=== PATIENT | female | born 1945 | race African-American/Black ===

== ENCOUNTER 2017-01-12 00:37 | Emergency (ER) | payer OTHER ==
[2017-01-12] MEDS ORDERED: NS 0.9% 1000 ML* 1,000 ML IV ONE (01:18)
[2017-01-12 02:13] LABS: Hematocrit 43 % (35-47); Hemoglobin 14.3 g/dl (12.0-16.0); Mean Corpuscular HGB Conc 33 g/dl (31-36); Mean Corpuscular Hemoglobin 27 pg (27-31); Mean Corpuscular Volume 82 fL (80-97); Mean Platelet Volume 10 um3 (7.4-10.4); Red Blood Count 5.23 10^6/ul (4.0-5.4); Red Cell Distribution Width 15 % (10.5-15); White Blood Count 6.6 10^3/ul (3.5-10.8)
[2017-01-12 02:19] LABS: Urine Bacteria 1+ (Absent); Urine Bilirubin Negative (Negative); Urine Glucose Negative (Negative); Urine Nitrite Negative (Negative)
[2017-01-12 02:23] LABS: ALT 9 U/L (7-52); AST 19 U/L (13-39); Albumin 4.3 g/dL (3.2-5.2); Alkaline Phosphatase 78 U/L (34-104); Anion Gap 5 mmol/L (2-11); BUN/Creatinine Ratio 14.9 (8-20); Blood Urea Nitrogen 14 mg/dL (6-24); C Reactive Protein < 1.00 mg/L (< 5.00); CO2 Carbon Dioxide 28 mmol/L (22-32); Calcium 9.5 mg/dL (8.6-10.3); Chloride 103 mmol/L (101-111); EGFR African American 75.5 (>60); EGFR Non-African American 58.7 (>60); Globulin 2.8 g/dL (2-4); Glucose 113 mg/dL (70-100); Lipase 46 U/L (11.0-82.0); Potassium 3.9 mmol/L (3.5-5.0); Sodium 136 mmol/L (133-145); Total Protein 7.1 g/dL (6.4-8.9)
[2017-01-12] MEDS ORDERED: Iohexol 300* (CONTRAST) 10 ML SDV IV ONE (02:31)
[2017-01-12] MEDS ORDERED: Levofloxacin TAB* 250 MG PO ONE (03:28)
--- NOTE | 2017-01-12 03:28 | ED ---
Arturo Mora Rebecca, scribed for Tyler Gambino MD on 01/12/17 at 0127 . Abdominal Pain/Female - HPI Summary HPI Summary: Pt is a 71 y/o F who presents to ED c/o epigsatric abdominal pain. Pain has been intermittent for the past year and is currently moderate, ranked 5/10. 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 Pt reports that pain tonight is different because "you can feel something in there." Sx aggravated and alleviated by nothing. Additionally c/o nausea. Denies fever, vomiting. Last saw her PCP for these sx about 1 month ago. - History of Current Complaint Chief Complaint: EDAbdPain Stated Complaint: ABD PAIN Time Seen by Provider: 01/12/17 01:11 Hx Obtained From: Patient Onset/Duration: Still Present Timing: Intermittent Episode Lasting Severity Currently: Moderate Pain Intensity: 5 Pain Scale Used: 0-10 Numeric Location: Epigastric Aggravating Factor(s): Nothing Alleviating Factor(s): Nothing Associated Signs and Symptoms: Positive: Nausea. Negative: Fever, Vomiting Allergies/Adverse Reactions: Allergies Allergy/AdvReac Type Severity Reaction Status Date / Time No Known Allergies Allergy Verified 01/12/17 00:43 PMH/Surg Hx/FS Hx/Imm Hx Endocrine/Hematology History: Denies: Hx Diabetes, Hx Thyroid Disease Cardiovascular History: Denies: Hx Hypertension Respiratory History: Denies: Hx Asthma, Hx Chronic Obstructive Pulmonary Disease (COPD) GI History: Reports: Hx Gastroesophageal Reflux Disease - PRN OTC- UNKNOWN, Hx Ulcer - gerd Musculoskeletal History: Reports: Hx Arthritis Sensory History: Reports: Hx Cataracts, Hx Contacts or Glasses - GLASSES Denies: Hx Hearing Aid Opthamlomology History: Reports: Hx Cataracts, Hx Contacts or Glasses - GLASSES Neurological History: Reports: Other Neuro Impairments/Disorders - ALZHEIMER'S Psychiatric History: Reports: Hx Anxiety - AT TIMES - Surgical History Surgery Procedure, Year, and Place: hysterectomy- [facility]. polyps removed during [facility]. LEFT EYE CATARACT REMOVED- [facility]. CARPAL TUNNEL RIGHT Hx Anesthesia Reactions: No - Immunization History Date of Tetanus Vaccine: Unk Date of Influenza Vaccine: Fall 2014 Infectious Disease History: Denies: Hx Clostridium Difficile, Hx Hepatitis, Hx Human Immunodeficiency Virus (HIV), Hx of Known/Suspected MRSA, Hx Shingles, Hx Tuberculosis, Traveled Outside the [place] in Last 30 Days - Family History Known Family History: Positive: Other - Cataract - Social History Alcohol Use: Occasionally Hx Substance Use: No Substance Use Type: Reports: None Hx Tobacco Use: No Smoking Status (MU): Never Smoked Tobacco Review of Systems Negative: Fever Positive: Abdominal Pain, Nausea. Negative: Vomiting All Other Systems Reviewed And Are Negative: Yes Physical Exam Triage Information Reviewed: Yes Vital Signs On Initial Exam: Initial Vitals Temp Pulse Resp BP Pulse Ox 96.8 F 68 16 147/81 100 01/12/17 00:40 01/12/17 00:40 01/12/17 00:40 01/12/17 00:40 01/12/17 00:40 Vital Signs Reviewed: Yes Appearance: Positive: No Pain Distress, Thin Skin: Positive: Warm Head/Face: Positive: Normal Head/Face Inspection ENT: Positive: Hearing grossly normal Neck: Positive: Supple Respiratory/Lung Sounds: Positive: Clear to Auscultation, Breath Sounds Present Cardiovascular: Positive: RRR Abdomen Description: Positive: Nontender, Soft Bowel Sounds: Positive: Present Neurological: Positive: Alert, Oriented to Person Place, Time Psychiatric: Positive: Affect/Mood Appropriate Diagnostics - Vital Signs Vital Signs Temp Pulse Resp BP Pulse Ox 01/12/17 00:40 96.8 F 68 16 147/81 100 - Laboratory Result Diagrams: 01/12/17 01:50 01/12/17 01:50 Lab Statement: Any lab studies that have been ordered have been reviewed, and results considered in the medical decision making process. - CT CT Abd/Pel CT Interpretation: No Acute Changes - No solid stool could indicate a diarrheal illness. Quesitonable mild gastritis. CT Interpretation Completed By: Radiologist - EKG 0357 Cardiac Rate: NL - 49 bpm EKG Rhythm: Sinus Bradycardia EKG Interpretation: No acute changes Re-Evaluation - Re-Evaluation First Eval Re-Evaluation Time: 04:01 Change: Improved Comment: Discussed CT results. Abdominal Pain Fem Course/Dx - Course Course Of Treatment: Pt is a 71 y/o F who presents to ED c/o epigsatric abdominal pain. Pain has been intermittent for the past year and is currently moderate, ranked 5/10. 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 Pt reports that pain tonight is different because "you can feel something in there. " Sx aggravated and alleviated by nothing. Additionally c/o nausea. Denies fever , vomiting. Last saw her PCP for these sx about [address] Abd/Pel reveals no acute findings. UA reveals urine color: yellow, appearance: clear, blood: 3+ , leukocyte esterase: 2+, WBC: 2+, RBC: trace, quamous epithelial cells present , bacteria: 1+ and negative for ptoein and ketones. Pt will be D/C to home with Dx of UTI and abdominal pain adn Rx for Levaquin. She understands and agrees. Elevated BP noted and advised to f/u with PCP. - Diagnoses Provider Diagnoses: Abdominal pain, UTI (urinary tract infection) Discharge - Discharge Plan Condition: Stable Disposition: HOME Prescriptions: Levofloxacin TAB* [Levaquin TAB*] 250 mg PO DAILY #7 tab Patient Education Materials: Acute Abdominal Pain (ED), Urinary Tract Infection in Women (ED) Referrals: Wale Claros MD [Primary Care Provider] - Jr Mckeon MD [Medical Doctor] - 3 Days The documentation as recorded by the rAturo doan Rebecca accurately reflects the service I personally performed and the decisions made by me, Tyler Gambino MD.
[2017-01-12 05:12] VITALS: BP 125/53
--- NOTE | 2017-01-12 08:15 | RAD ---
INDICATION: Abdominal pain. COMPARISON: Comparison is made with prior x-ray study of the lumbar spine from November 10, 2014. TECHNIQUE: A CT scan of the abdomen and pelvis was performed with intravenous and oral contrast following intravenous injection of 72 ml of Omnipaque 300 nonionic contrast. Contiguous axial sections were obtained from the lung bases through the symphysis pubis. Images were reconstructed in the coronal and sagittal planes. FINDINGS: The lung bases are clear. No pleural effusion is present. The liver and spleen are within normal limits in size without significant focal abnormality. No calcified gallstones are seen. No focal pancreatic abnormality is seen. The kidneys and adrenal glands are normal in size. No hydronephrosis is seen. There are several small bilateral renal cysts. The aorta is normal in caliber with mild calcific plaque present. No significant enlarged retroperitoneal lymph nodes are seen. The stomach, small and large bowel appear nondistended. There is mild thickening of the wall of the stomach possibly due to a complete distention versus gastritis. The appendix appears to be within normal limits. There is no evidence for diverticulitis or colitis. The patient is status post hysterectomy. No free intraperitoneal air or fluid is seen. There is a chronic compression fracture of the superior endplate of the L3 vertebral body which is unchanged from the prior x-ray study. No other focal osseous abnormalities are seen. IMPRESSION: 1. THICKENING OF THE WALL OF THE STOMACH MOST CONSISTENT WITH EITHER INCOMPLETE DISTENTION OR GASTRITIS. RECOMMEND CLINICAL CORRELATION. 2. CHRONIC COMPRESSION FRACTURE OF THE L3 VERTEBRAL BODY, UNCHANGED.
== END 2017-01-12 05:11 | disposition home or self-care (01) ==
LOC: ED 00:37
DX: R10.13 Epigastric pain (principal); N39.0 Urinary tract infection, site not specified; R11.0 Nausea
CPT/HCPCS: 36415; 74177; 80053; 81003; 81015; 83605; 83690; 85025; 86140; 87086; 93005; 99282; A9270-GY; Q9967

== ENCOUNTER 2019-07-19 13:42 | Emergency (ER) | payer MEDICARE, OTHER ==
[2019-07-19 15:23] LABS: ABS Lymphocytes 1.4 10^3/ul (1.0-4.8); ABS Monocytes 0.3 10^3/ul (0-0.8); ABS Neutrophils 3.3 10^3/ul (1.5-7.7); Eosinophil % 0.4 %; Hematocrit 38 % (35-47); Hemoglobin 12.8 g/dL (12.0-16.0); Mean Corpuscular HGB Conc 34 g/dL (31-36); Mean Corpuscular Hemoglobin 28 pg (27-31); Mean Corpuscular Volume 82 fL (80-97); Mean Platelet Volume 8.9 fL (7.4-10.4); Nucleated Red Blood Cells % 0.1; Platelet Count 156 10^3/uL (150-450); Red Blood Count 4.65 10^6 /uL (3.70-4.87); Red Cell Distribution Width 14 % (10-15)
--- NOTE | 2019-07-19 15:24 | ED ---
Syncope/Near Syncope - HPI Summary HPI Summary: 74 year old female presents with syncope today. She was walking with her caregiver and she passing out for a minute. Home health aide said she did not hit her head and ended up put her in a chair and she came around. She was leaning on the aide when she came around. She never voiced any pain or dizziness. She did pass out 2 years ago. She has no cardiac history. no family history of cardiac disease. she denies any chest pain or SOB. no dizziness. no visual changes. daughter states she is acting normal. level 5 cavet due to patient Alzheimer. history provided by daughter. - History Of Current Complaint Chief Complaint: EDSyncope Time Seen by Provider: 07/19/19 14:42 - Allergies/Home Medications Allergies/Adverse Reactions: Allergies Allergy/AdvReac Type Severity Reaction Status Date / Time No Known Allergies Allergy Verified 07/19/19 13:48 Home Medications: Home Medications Donepezil TAB* [Aricept TAB*] 10 mg PO DAILY 02/21/15 [History Confirmed ] Alendronate (NF) [Fosamax (NF)] 70 mg PO WEEKLY 07/19/19 [History Confirmed 01/29] Memantine TAB* [Namenda TAB*] 10 mg PO DAILY 07/19/19 [History Confirmed ] PMH/Surg Hx/FS Hx/Imm Hx Endocrine/Hematology History: Denies: Hx Anticoagulant Therapy, Hx Diabetes, Hx Thyroid Disease Cardiovascular History: Denies: Hx Hypertension Respiratory History: Denies: Hx Asthma, Hx Chronic Obstructive Pulmonary Disease (COPD) GI History: Reports: Hx Gastroesophageal Reflux Disease - PRN OTC- UNKNOWN, Hx Ulcer - gerd Musculoskeletal History: Reports: Hx Arthritis Sensory History: Reports: Hx Cataracts, Hx Contacts or Glasses - GLASSES Denies: Hx Hearing Aid Opthamlomology History: Reports: Hx Cataracts, Hx Contacts or Glasses - GLASSES Neurological History: Reports: Other Neuro Impairments/Disorders - ALZHEIMER'S Psychiatric History: Reports: Hx Anxiety - AT TIMES - Surgical History Surgery Procedure, Year, and Place: hysterectomy- [facility]. polyps removed during [facility]. LEFT EYE CATARACT REMOVED- [place]. CARPAL TUNNEL RIGHT Hx Anesthesia Reactions: No - Immunization History Date of Tetanus Vaccine: Unk Date of Influenza Vaccine: Fall 2014 Infectious Disease History: No Infectious Disease History: Denies: Hx Clostridium Difficile, Hx Hepatitis, Hx Human Immunodeficiency Virus (HIV), Hx of Known/Suspected MRSA, Hx Shingles, Hx Tuberculosis, Traveled Outside the [place] in Last 30 Days - Family History Known Family History: Positive: None, Other - Cataract - Social History Alcohol Use: None Hx Substance Use: No Substance Use Type: Reports: None Hx Tobacco Use: No Smoking Status (MU): Never Smoked Tobacco Review of Systems Negative: Fever Negative: Chest Pain Negative: Shortness Of Breath Positive: Syncope All Other Systems Reviewed And Are Negative: Yes Physical Exam Triage Information Reviewed: Yes Vital Signs On Initial Exam: Initial Vitals Temp Pulse Resp BP Pulse Ox 98.5 F 61 16 142/61 100 07/19/19 13:47 07/19/19 13:47 07/19/19 13:47 07/19/19 13:47 07/19/19 13:47 Vital Signs Reviewed: Yes Appearance: Positive: Well-Appearing Skin: Positive: Warm, Dry Head/Face: Positive: Normal Head/Face Inspection Eyes: Positive: Normal, EOMI, JO, Conjunctiva Clear ENT: Positive: Normal ENT inspection, Pharynx normal, TMs normal Respiratory/Lung Sounds: Positive: Clear to Auscultation, Breath Sounds Present Cardiovascular: Positive: Normal, RRR Abdomen Description: Positive: Nontender, Soft Bowel Sounds: Positive: Present Musculoskeletal: Positive: Normal Neurological: Positive: Sensory/Motor Intact, CN Intact II-III. Negative: Alert , Oriented to Person Place, Time Psychiatric: Positive: Normal Procedures - Sedation Patient Received Moderate/Deep Sedation with Procedure: No Diagnostics - Vital Signs Vital Signs Temp Pulse Resp BP Pulse Ox 07/19/19 15:00 53 19 100 07/19/19 14:33 64 17 112/55 100 07/19/19 14:28 57 100 07/19/19 13:47 98.5 F 61 16 142/61 100 - Laboratory Result Diagrams: 07/19/19 15:12 07/19/19 15:12 Lab Statement: Any lab studies that have been ordered have been reviewed, and results considered in the medical decision making process. - CT brain CT Interpretation Completed By: Radiologist Summary of CT Findings: IMPRESSION: NO ACUTE INTRACRANIAL PATHOLOGY. - EKG No standard instances Cardiac Rate: Bradycardia EKG Rhythm: Sinus Bradycardia EKG Comparison: No Significant Change Summary of EKG Findings: sinus rhythm Re-Evaluation - Re-Evaluation First Eval Re-Evaluation Time: 18:43 Comment: discussed admission and daughter declined. Course/Dx Course Of Treatment: 74 year old female presents with syncope today. She was walking when she ended up passing out. Home health aide put her in a chair and she came around. She was leaning on the aide when she came around. She never voiced and pain or dizziness. She did pass out 2 years ago. She has no cardiac history. no family history of cardiac disease. she denies any chest pain or SOB. no dizziness. no visual changes. daughter states she is acting normal. level 5 cavet due to patient Alzheimer. history provided by daughter. on exam has is alert to person only. no neuro deficit. sinus rhythm noted in room. ekg shows sinus bradycardia. discussed case with dr gonzalez who recommends discussing with hospitalist. discussed with dr mittal who recommends orthostatic which were positive after a liter. will give another liter of fluid. discussed admission with daughter who declines at this time as patient is becoming more agitated when here. She wants to have her follow up outpatient. warned if anything changes to return. patient daughter understand and agrees with plan. - Diagnoses Differential Diagnosis/HQI/PQRI: Positive: Dysrhythmia, Hypoglycemia, Hypovolemia, Vasovagal Episode Provider Diagnoses: Syncope, Orthostatic hypotension Discharge ED - Sign-Out/Discharge Documenting (check all that apply): Patient Departure - Discharge Plan Condition: Stable Disposition: HOME Patient Education Materials: Syncope (ED) Referrals: Wale Claros MD [Primary Care Provider] - Additional Instructions: encourage fluids follow up with primary within 3 days Return to ED if develop any new or worsening symptoms - Billing Disposition and Condition Condition: STABLE Disposition: Home
[2019-07-19 15:42] LABS: Troponin I 0.02 ng/mL (<0.03)
--- OUTSIDE RECORDS SUMMARY | 2019-07-19 15:43 | XMS REPORT | Summary of Care ---
:1945 Author Organization [facility] Address [address] [place] [address] Care Team Providers Name Role Phone HyacinthWale Jonathon Primary Care Provider Reason for Referral Refer to Department Only (Routine) Status Reason Specialty Diagnoses / Referred By Referred To Procedures Contact Contact Pending Review NEUROLOGY Diagnoses Late onset Alzheimer's disease with behavioral disturbance (HCC) Edvin Zimmerman, PA [address] [place] [address] Reason for Visit Reason Comments Check Up halluciantions brought on by alzhiemers, complains of a pain under her rib cage, not sleeping well, appetite has decreased, ongoing for a few weeks. Encounter Details Date Type Department Care Team Description 05/31/2019 Office Visit [place] [facility] Edvin Zimmerman, Late onset Alzheimer's Medicine PA disease with [address] [facility] behavioral disturbance [place], [place] [id number] [place] [address] (HCC) (Primary Dx) [phone] Allergies No Known Allergiesdocumented as of this encounter (statuses as of 05/31/2019) Medications Medication Sig Dispensed Refills Start Date End Date Status calcium-vitamin D Take 1 Tab 90 Tab 0 11/05/2017 Active (OSCAL 500/200 D-3) by mouth 500-200 MG-UNIT Oral TWICE DAILY. TabIndications: Osteoporosis with current pathological fracture, unspecified osteoporosis type, initial encounter pantoprazole Take 1 Tab 30 Tab 5 11/16/2018 Active (PROTONIX) 40 MG Oral by mouth Tab ECIndications: DAILY. Gastroesophageal reflux disease without esophagitis alendronate (FOSAMAX) TAKE 1 12 Tab 3 12/15/2018 Active 70 MG Oral Tab TABLET BY MOUTH EVERY 7 DAYS memantine (NAMENDA) Take 1 Tab 180 Tab 3 12/15/2018 Active 10 MG Oral by mouth TabIndications: DAILY. Dementia with psychosis (HCC) haloperidol (HALDOL) Take 1 Tab 60 Tab 0 05/31/2019 Active 0.5 MG Oral Tab by mouth EVERY SIX HOURS NEEDED (For hallucinatio ns). donepezil (ARICEPT) TAKE 1 90 Tab 3 04/23/2018 05/31/19 Discontinued 10 MG Oral Tab TABLET BY 20 (Other) MOUTH AT EVERY BEDTIME documented as of this encounter (statuses as of 05/31/2019) Active Problems Problem Noted Date Dementia without behavioral disturbance 04/12/2015 Compression fracture 11/16/2014 Overview: L3 Carpal tunnel syndrome 07/22/2013 Overview: Right wrist Cataract 07/22/2013 Overview: Left eye cataract surgery 2014 Breast mass, left 07/22/2013 Overview: Benign biopsy 2010 Mixed hyperlipidemia 07/22/2013 GERD (gastroesophageal reflux disease) 07/22/2013 documented as of this encounter (statuses as of 05/31/2019) Immunizations Name Administration Dates Next Due Influenza (IM) W/Pres 06/25/2017 Pneumococcal Conjugate(13 Valent) 12/08/2014 documented as of this encounter Social History Tobacco Use Types Packs/Day Years Used Date Never Smoker Smokeless Tobacco: Never Used Alcohol Use Drinks/Week oz/Week Comments Yes 0 Standard drinks or equivalent 0.0 socially Sex Assigned at Date Recorded Not on file Job Start Date Occupation Industry Not on file Not on file Not on file Travel History Travel Start Travel End No recent travel history available. documented as of this encounter Last Filed Vital Signs Vital Sign Reading Time Taken Comments Blood Pressure 102/62 05/31/2019 9:59 AM EST Pulse 55 05/31/2019 9:59 AM EST Temperature 37 05/31/2019 9:59 AM EST C (98.6 F) Respiratory Rate - - Oxygen Saturation 99% 05/31/2019 9:59 AM EST Inhaled Oxygen Concentration - - Weight 48.1 kg (106 lb) 05/31/2019 9:59 AM EST Height 154.9 cm (5' 1") 05/31/2019 9:59 AM EST Body Mass Index 20.03 05/31/2019 9:59 AM EST documented in this encounter Patient Instructions Patient InstructionsEdvin Zimmerman PA - 05/31/2019 9:20 AM ESTPatient Education Haloperidol (rogers eligio PER i dole) Brand Names: [place] Haldol; Haldol Decanoate Brand Names: Anyi APO-Haloperidol; Haloperidol-LA [place]; PMS-Haloperidol; PMS- Haloperidol LA; TEVA-Haloperidol Warning There is a higher chance of in older adults who take this drug for mental problems causedby dementia. Most of the deaths were linked to heart disease or infection. This drug is not approvedto treat mental problems caused by dementia. What is this drug used for? It is used to treat schizophrenia. It is used to treat Tourette's syndrome. It is used to treat problems with how one acts. It is used to treat mood problems. It may be given to you for other reasons. Talk with the doctor. What do I need to tell my doctor BEFORE I take this drug? If you have an allergy to haloperidol or any other part of this drug. If you are allergic to this drug; any part of this drug; or any other drugs , foods, or substances. Tell your doctor about the allergy and what signs you had. If you have Parkinson's disease or dementia. If you are very sleepy. If you are breast-feeding. Do not breast-feed while you take this drug. This is not a list of all drugs or health problems that interact with this drug. Tell your doctor and pharmacist about all of your drugs (prescription or OTC, natural products, vitamins) and health problems. You must check to make sure that it is safe for you to take this drug withall of your drugs and health problems. Do not start, stop, or change the dose of any drug without checking with your doctor. What are some things I need to know or do while I take this drug? Tell all of your health care providers that you take this drug. This includes your doctors, nurses, pharmacists, and dentists. Avoid driving and doing other tasks or actions that call for you to be alert until you see how this drug affects you. Avoid drinking alcohol while taking this drug. Talk with your doctor before you use other drugs and natural products that slow your actions. Sudden and heartbeats that are not normal have happened with this drug. Very high doses raise the chance of these problems. Tell your doctor if you have a heartbeat that is not normal like long QT on ECG, electrolyte problems like low potassium or magnesium levels, heart problems, low thyroid function, or a family member that has a long QT on ECG. Tell your doctor if you take any drugs that may raise the chance of a heartbeat that is not normal. Ask your doctor if you are not sure. Talk with your doctor. A very bad and sometimes deadly health problem called neuroleptic malignant syndrome (NMS) may happen. Call your doctor right away if you have any fever, muscle cramps or stiffness, dizziness, very bad headache, confusion, change in thinking, fast heartbeat, heartbeat that does not feel normal, or are sweating a lot. If you also take lithium, talk with your doctor. A few people who were taking this drug along with lithium have had very bad side effects and brain problems that did not go away. Dizziness, sleepiness, and feeling less stable may happen with this drug. These may lead to falling, which can cause broken bones or other health problems. Some people have gotten pneumonia when taking this drug. Sometimes, this has been deadly. Call your doctor right away if you have fever, chest pain, cough, shortness of breath, or wheezing. Some people may get a severe muscle problem called tardive dyskinesia. This problem may lessen or go away after stopping this drug, but it may not go away. The risk is greater with diabetes and inolder adults, especially older women. The risk is greater with longer use or higher doses, but it may also occur after short-term use with low doses. Call your doctor right away if you have trouble controlling body movements or problems with your tongue, face, mouth, or jaw like tongue sticking out, puffing cheeks, mouth puckering, or chewing. If you are 65 or older, use this drug with care. You could have more side effects. Tell your doctor if you are or plan on getting . You will need to talk about the benefits and risks of using this drug while you are . Taking this drug in the third trimester of may lead to uncontrolled muscle movements and withdrawal in the . What are some side effects that I need to call my doctor about right away? WARNING/CAUTION: Even though it may be rare, some people may have very bad and sometimes deadly sideeffects when taking a drug. Tell your doctor or get medical help right away if you have any of the following signs or symptoms that may be related to a very bad side effect: Signs of an allergic reaction, like rash; hives; itching; red, swollen, blistered, or peeling skin with or without fever; wheezing; tightness in the chest or throat; trouble breathing, swallowing,or talking; unusual hoarseness; or swelling of the mouth, face, lips, tongue, or throat. Signs of high or low blood pressure like very bad headache or dizziness, passing out, or changein eyesight. Signs of liver problems like dark urine, feeling tired, not hungry, upset stomach or stomach pain, light-colored stools, throwing up, or yellow skin or eyes. Signs of low sodium levels like headache, trouble focusing, memory problems , feeling confused, weakness, seizures, or change in balance. Trouble controlling body movements, twitching, change in balance, trouble swallowing or speaking. Shakiness, trouble moving around, or stiffness. A fast heartbeat. A heartbeat that does not feel normal. Chest pain that is new or worse. Trouble passing urine. Feeling very tired or weak. Any unexplained bruising or bleeding. Change in eyesight. Hallucinations (seeing or hearing things that are not there). Seizures. Mental, mood, or behavior changes that are new or worse. Not able to control eye movements. Change in sex interest. Enlarged breasts, nipple discharge, not able to get or keep an erection ( in males), or period (menstrual) changes (in females). Erection that lasts more than 4 hours. Low white blood cell counts have happened with drugs like this one. This may lead to a higher chance of infection. Rarely, infections have been deadly. Tell your doctor if you have ever had a low white blood cell count. Call your doctor right away if you have signs of infection like fever, chills, or sore throat. What are some other side effects of this drug? All drugs may cause side effects. However, many people have no side effects or only have minor side effects. Call your doctor or get medical help if any of these side effects or any other side effects bother you or do not go away: Feeling sleepy. Anxiety. Constipation. Dry mouth. More saliva. Upset stomach or throwing up. Diarrhea. Headache. Not hungry. Restlessness. Trouble sleeping. Pimples (acne). These are not all of the side effects that may occur. If you have questions about side effects, callyour doctor. Call your doctor for medical advice about side effects. You may report side effects to your national health agency. How is this drug best taken? Use this drug as ordered by your doctor. Read all information given to you. Follow all instructions closely. All oral products: Take with or without food. Take with food if it causes an upset stomach. Keep taking this drug as you have been told by your doctor or other health care provider, even if you feel well. Oral solution: Measure liquid doses carefully. Use the measuring device that comes with this drug. You may take this drug without mixing, or you may mix with food or drink as you have been told. Short-acting injection: It is given as a shot into a muscle. It may be given as a shot into a vein. Long-acting injection: It is given as a shot into a muscle. All products: Have blood work checked as you have been told by the doctor. Talk with the doctor. If you have high blood sugar (diabetes), you will need to watch your blood sugar closely. Heat stroke has happened in people taking this drug. Be careful in hot weather and during physical activity. Drink lots of noncaffeine liquids unless told to drink less liquid by your doctor. If you have been taking this drug on a regular basis and you stop it all of a sudden, you may have signs of withdrawal. Do not stop taking this drug all of a sudden without calling your doctor. Tell your doctor if you have any bad effects. What do I do if I miss a dose? All oral products: Take a missed dose as soon as you think about it. If it is close to the time for your next dose, skip the missed dose and go back to your normal time. Do not take 2 doses at the same time or extra doses. All injection products: Call your doctor to find out what to do. How do I store and/or throw out this drug? All oral products: Store at room temperature. Protect from light. Store in a dry place. Do not store in a bathroom. Oral solution: Do not freeze. All injection products: If you need to store this drug at home, talk with your doctor, nurse, or pharmacist about how to store it. All products: Keep all drugs in a safe place. Keep all drugs out of the reach of children and pets. Throw away unused or drugs. Do not flush down a toilet or pour down a drain unless you are told to do so. Check with your pharmacist if you have questions about the best way to throw out drugs. There may be drug take- back programs in your area. General drug facts If your symptoms or health problems do not get better or if they become worse, call your doctor. Do not share your drugs with others and do not take anyone else's drugs. Some drugs may have another patient information leaflet. If you have any questions about this drug, please talk with your doctor, nurse, pharmacist, or other health care provider. If you think there has been an overdose, call your poison control center or get medical care right away. Be ready to tell or show what was taken, how much, and when it happened. Consumer Information Use and Disclaimer This information should not be used to decide whether or not to take this medicine or any other medicine. Only the healthcare provider has the knowledge and training to decide which medicines are rightfor a specific patient. This information does not endorse any medicine as safe, effective, or approved for treating any patient or health condition. This is only a brief summary of general information about this medicine. It does NOT include all information about the possible uses, directions, warnings, precautions, interactions, adverse effects, or risks that may apply to this medicine. This information is not specific medical advice and does not replace information you receive from the healthcare provider. You must talk with the healthcare provider for complete information about the risks and benefits of using this medicine. Last Reviewed Date 2018-08-12 Copyright 2019 [employer] and its affiliates and/ or licensors. All rights reserved. documented in this encounter Progress Notes Edvin Zimmerman PA - 05/31/2019 9:20 AM EST PATIENT: Alisia Cintron : 1945 DATE OF SERVICE: 05/31/2019 CHIEF COMPLAINT: Chief Complaint Patient presents with Check Up halluciantions brought on by alzhiemers, complains of a pain under her rib cage, not sleeping well, appetite has decreased, ongoing for a few weeks. Subjective HISTORY OF PRESENT ILLNESS: Alisia Cintron is a 74-y.o. female. Alisia presents to the office complains of hallucinations that have been causing her anxiety and insomnia for the past few months. The hallucinations are visual and auditory, in which relatives suggest that she is seeing random people that she doesn't know and is interacting with them. Family statesthat this is worse at night, and the hallucinations are keeping her up. She has not had any recent dosage change and denies any UTI symptoms such as dysuria, frequency or urgency. Past Medical History: Diagnosis Date Dementia (HCC) GERD (gastroesophageal reflux disease) Hyperlipidemia Postmenopausal Family History Problem Relation Age of Onset Heart Disease No family history Current Outpatient Medications Medication Sig alendronate (FOSAMAX) 70 MG Oral Tab TAKE 1 TABLET BY MOUTH EVERY 7 DAYS calcium-vitamin D (OSCAL 500/200 D-3) 500-200 MG-UNIT Oral Tab Take 1 Tab by mouth TWICE DAILY. haloperidol (HALDOL) 0.5 MG Oral Tab Take 1 Tab by mouth EVERY SIX HOURS NEEDED (For hallucinations). memantine (NAMENDA) 10 MG Oral Tab Take 1 Tab by mouth DAILY. pantoprazole (PROTONIX) 40 MG Oral Tab EC Take 1 Tab by mouth DAILY. No current facility-administered medications for this visit. No Known Allergies Social History Socioeconomic History Marital status: Single Spouse name: Not on file Number of children: Not on file Years of education: Not on file Highest education level: Not on file Occupational History Not on file Social Needs Financial resource strain: Not on file Food insecurity Worry: Not on file Inability: Not on file Transportation needs Medical: Not on file Non-medical: Not on file Tobacco Use Smoking status: Never Smoker Smokeless tobacco: Never Used Substance and Sexual Activity Alcohol use: Yes Alcohol/week: 0.0 standard drinks Comment: socially Drug use: No Sexual activity: Not Currently Lifestyle Physical activity Days per week: Not on file Minutes per session: Not on file Stress: Not on file Relationships Social connections Talks on phone: Not on file Gets together: Not on file Attends bahai service: Not on file Active member of club or organization: Not on file Attends meetings of clubs or organizations: Not on file Relationship status: Not on file Intimate partner violence Fear of current or ex partner: Not on file Emotionally abused: Not on file Physically abused: Not on file Forced sexual activity: Not on file Other Topics Concern Back Care Not Asked Bike Helmet Not Asked Blood Transfusions Not Asked Caffeine Concern Not Asked Exercise Yes Comment: treadmill Hobby Hazards Not Asked International Travel Not Asked Service Not Asked Occupational Exposure Not Asked Seat Belt Not Asked Self-Exams Not Asked Sleep Concern Not Asked Special Diet Not Asked Stress Concern Not Asked Weight Concern Not Asked Social History Narrative Moved from [facility] currently living with daughter in [place] Daughter works at [employer] Patient currently looking in [place] for apartment Had lived alone in [facility] for many years Had worked at [employer] in [place] REVIEW OF SYSTEMS: Review of Systems Constitutional: Negative for chills, fever and malaise/fatigue. HENT: Negative for hearing loss and tinnitus. Eyes: Negative for blurred vision and double vision. Respiratory: Negative for cough and shortness of breath. Cardiovascular: Negative for chest pain, palpitations and leg swelling. Gastrointestinal: Negative for diarrhea, nausea and vomiting. Musculoskeletal: Negative for back pain and neck pain. Complains of abdominal wall pain that worsens with movement such as leaning back, twisting and bending over. Neurological: Negative for dizziness, tremors, seizures, weakness and headaches. Psychiatric/Behavioral: Positive for hallucinations and memory loss. Negative for depression, substance abuse and suicidal ideas. The patient is nervous/ anxious and has insomnia. Objective PHYSICAL EXAM: VITALS: BP 102/62 (BP Location: Left arm, Patient Position: Sitting) | Pulse 55 | Temp 98.6 F(37 C) (Tympanic) | Ht 5' 1" (1.549 m) | Wt 106 lb ( 48.1 kg) | SpO2 99% | BMI 20.03 kg/m Body mass index is 20.03 kg/m. Physical Exam Constitutional: General: She is not in acute distress. HENT: Head: Normocephalic and atraumatic. Mouth/Throat: Mouth: Mucous membranes are moist. Eyes: Pupils: Pupils are equal, round, and reactive to light. Neurological: Mental Status: She is alert. Mental status is at baseline. Psychiatric: Mood and Affect: Mood normal. I spent 25 minutes with the patient, greater than half of this in direct face to face counseling addressing the current condition and the plan of care. ASSESSMENT / IMPRESSION: ICD-9-CM ICD-10-CM 1. Late onset Alzheimer's disease with behavioral disturbance (HCC) 331.0 G30.1 REFER TO NEUROLOGY 294.11 F02.81 Family would like a second opinion; we will be referring to neurology for reconciliation of the medications, further evaluation and treatment. Family would like to choose the provider themselves, in which I expressed agreement to and have ordered an external referral. In the meantime, Haldol 0.5mg as needed every 6 hours for the hallucinations. This will benefit her in the evening as it does have side effects of sedation, which may help her sleep at night and stay asleep; therefore reducing the number of hallucinations she would have from sleep deprivation. Follow up as needed. Author: SALEEM Spencer 05/31/2019 13:07 documented in this encounter Plan of Treatment Name Type Priority Associated Diagnoses Order Schedule REFER TO NEUROLOGY Referral Routine Late onset Alzheimer's Expected: 2019, disease with behavioral Expires: 05/31/2020 disturbance (HCC) Health Maintenance Due Date Last Done Comments DTaP/Tdap/Td Vaccines ( - 1956 Tdap) HIV SCREENING 1960 HEPATITIS C SCREENING 1985 ZOSTER IMMUNIZATION SERIES 1995 (1 of 2) FALL RISK ASSESSMENT 2010 PNEUMOCOCCAL 65+YRS (2 of 2 12/09/2015 12/08/2014 - PPSV23) MAMMOGRAM (SCREENING) 02/22/2017 02/23/2016, 12/14/2014, 10/06/2014, Additional history exists MEDICARE ANNUAL WELLNESS 08/21/2017 08/21/2016 VISIT LIPID DISORDER SCREENING 08/22/2017 08/22/2016, 07/22/2013 Colonoscopy 07/29/2018 07/29/2013 INFLUENZA VACCINE (#1) 2019 06/25/2017 DEPRESSION SCREENING 11/17/2019 11/16/2018 OSTEOPOROSIS SCREENING 10/15/2027 10/14/2017, 12/14/2014 HEPATITIS A IMMUNIZATION Aged Out No longer eligible SERIES based on patient's age to complete this topic HPV IMMUNIZATION SERIES Aged Out No longer eligible based on patient's age to complete this topic MENINGOCOCCAL VACCINE IMM Aged Out No longer eligible based on patient's age to complete this topic documented as of this encounter Results Not on filedocumented in this encounter Visit Diagnoses Diagnosis Late onset Alzheimer's disease with behavioral disturbance (HCC) documented in this encounter Insurance Payer Benefit Plan / Subscriber ID Effective Dates Phone Address Type Group UHC MEDICARE [employer] xxxxxxxxx 2016-Present UHC ADVANTAGE MEDICARE ADVANTAGE (Home) [phone] [place] [address] (Work) documented as of this encounter
[2019-07-19 15:53] LABS: Albumin 3.6 g/dL (3.2-5.2); Albumin/Globulin Ratio 1.6 (1-3); BUN/Creatinine Ratio 12.8 (8-20); Calcium 8.9 mg/dL (8.6-10.3); EGFR Non-African American 64.5 (>60); Globulin 2.2 g/dL (2-4); Magnesium 1.8 mg/dL (1.9-2.7); Total Bilirubin 0.4 mg/dL (0.2-1.0); Total Protein 5.8 g/dL (6.4-8.9)
[2019-07-19] MEDS ORDERED: NS 0.9% 1000 ML** 1,000 ML IV ONE ×2 (15:59→18:09)
[2019-07-19 16:25] LABS: TSH (Thyroid Stimulating Horm) 1.8 mcIU/mL (0.34-5.60)
[2019-07-19 16:49] LABS: Urine Appearance Clear; Urine Bilirubin Negative (Negative); Urine Blood Negative (Negative); Urine Color Yellow; Urine Glucose 1+(50 mg/dL) (Negative); Urine Ketones Negative (Negative); Urine Nitrite Negative (Negative); Urine Protein Negative (Negative); Urine Urobilinogen Negative (Negative)
[2019-07-19 17:12] LABS: Hepatitis C Antibody Negative (Negative)
[2019-07-19 19:24] VITALS: BP 157/81
== END 2019-07-19 19:25 | disposition home or self-care (01) ==
LOC: ED 13:42
DX: I95.1 Orthostatic hypotension (principal); R00.1 Bradycardia, unspecified; K21.9 Gastro-esophageal reflux disease without esophagitis; G30.9 Alzheimer's disease, unspecified; F41.9 Anxiety disorder, unspecified
CPT/HCPCS: 36415; 70450; 80053; 81003; 83605; 83735; 84443; 84484; 85025; 86803; 93005; 96360; 96361; 99284

== ENCOUNTER 2020-01-26 13:40 | Observation (INO) ==
[2020-01-26 16:20] LABS: ABS Basophils 0.1 10^3/ul (0-0.2); ABS Eosinophils 0.1 10^3/ul (0-0.6); ABS Lymphocytes 2.5 10^3/ul (1.0-4.8); ABS Monocytes 0.5 10^3/ul (0-0.8); ABS Neutrophils 6.7 10^3/ul (1.5-7.7); Eosinophil % 1.3 %; Hematocrit 42 % (35-47); Hemoglobin 14.2 g/dL (12.0-16.0); Lymphocyte % 25.4 %; Mean Corpuscular HGB Conc 34 g/dL (31-36); Mean Corpuscular Hemoglobin 28 pg (27-31); Mean Corpuscular Volume 81 fL (80-97); Mean Platelet Volume 9.6 fL (7.4-10.4); Nucleated Red Blood Cells % 0.1; Platelet Count 210 10^3/uL (150-450); Red Blood Count 5.16 10^6 /uL (3.70-4.87); Red Cell Distribution Width 15 % (10-15); White Blood Count 9.9 10^3/uL (3.5-10.8)
[2020-01-26 16:21] LABS: Urine Appearance Clear; Urine Bilirubin Negative (Negative); Urine Blood Negative (Negative); Urine Color Yellow; Urine Glucose Negative (Negative); Urine Ketones Negative (Negative); Urine Nitrite Negative (Negative); Urine Protein Negative (Negative); Urine Urobilinogen Negative (Negative)
[2020-01-26 16:32] LABS: Urine Bacteria Absent (Absent); Urine Red Blood Cell Absent (Absent); Urine Squamous Epithelial Cell Present (Absent); Urine White Blood Cell 1+(6-10/hpf) (Absent)
[2020-01-26 16:38] LABS: ALT 15 U/L (7-52); AST 26 U/L (13-39); Albumin 4.4 g/dL (3.2-5.2); Albumin/Globulin Ratio 1.5 (1-3); Alkaline Phosphatase 52 U/L (34-104); Anion Gap 10 mmol/L (2-11); BUN/Creatinine Ratio 10.8 (8-20); Blood Urea Nitrogen 8 mg/dL (6-24); CO2 Carbon Dioxide 24 mmol/L (22-32); Calcium 10.2 mg/dL (8.6-10.3); Chloride 101 mmol/L (101-111); EGFR African American 92.8 (>60); EGFR Non-African American 76.7 (>60); Globulin 2.9 g/dL (2-4); Glucose 112 mg/dL (70-100); Potassium 3.9 mmol/L (3.5-5.0); Sodium 135 mmol/L (135-145); Total Protein 7.3 g/dL (6.4-8.9)
[2020-01-26 16:40] LABS: Troponin I 0.01 ng/mL (<0.03)
[2020-01-26 16:49] LABS: Acetaminophen < 15 mcg/mL; Salicylate < 2.50 mg/dL (<30)
[2020-01-26 17:04] LABS: TSH Ultra Thyroid Stim Horm 2.55 mcIU/mL (0.34-5.60)
[2020-01-26] MEDS ORDERED: Valproic Acid IV 100 MG/ML 5 ML VIAL (500 MG) IVPB ONE (17:29)
[2020-01-26] MEDS ORDERED: VALPROIC ACID 500 MG IV - ED ONCE IVPB ONE (19:00)
[2020-01-26] MEDS: Heparin 5000 UNITS/ML 1 mL VIAL SUBCUT SCH (20:47)
[2020-01-27] MEDS: Heparin 5000 UNITS/ML 1 mL VIAL SUBCUT SCH ×3 (05:54→20:00)
[2020-01-27 05:56] LABS: ABS Basophils 0.1 10^3/ul (0-0.2); ABS Eosinophils 0.3 10^3/ul (0-0.6); ABS Lymphocytes 3.2 10^3/ul (1.0-4.8); ABS Monocytes 0.5 10^3/ul (0-0.8); Hematocrit 39 % (35-47); Hemoglobin 13.1 g/dL (12.0-16.0); Lymphocyte % 45.4 %; Mean Corpuscular HGB Conc 34 g/dL (31-36); Mean Corpuscular Hemoglobin 27 pg (27-31); Mean Corpuscular Volume 81 fL (80-97); Mean Platelet Volume 9.2 fL (7.4-10.4); Nucleated Red Blood Cells % 0.3; Platelet Count 194 10^3/uL (150-450); Red Blood Count 4.79 10^6 /uL (3.70-4.87); Red Cell Distribution Width 15 % (10-15)
[2020-01-27 06:13] LABS: BUN/Creatinine Ratio 10.3 (8-20); Calcium 9.7 mg/dL (8.6-10.3); EGFR African American 87.4 (>60); EGFR Non-African American 72.2 (>60); Potassium 3.8 mmol/L (3.5-5.0)
[2020-01-27] MEDS ORDERED: Thiamine 100 MG/ML 2 ml VIAL (200 mg) IV ONE (14:00)
[2020-01-27] MEDS ORDERED: Thiamine IV 250 MG in NS 0.9% 100 ML Q24H IV ONE (14:30)
[2020-01-28] MEDS: Heparin 5000 UNITS/ML 1 mL VIAL SUBCUT SCH ×2 (05:43→12:52)
[2020-01-28 13:01] VITALS: BP 117/49
== END 2020-01-28 14:46 | disposition home or self-care (01) ==
LOC: MEDTELE 13:40 → ED 13:40 → MEDTELE 20:08
PROVIDERS: ADMIT Internal Medicine; ATTEND Hospitalist